=== PATIENT | female | born 1985 ===

== ENCOUNTER 2024-03-03 10:54 | Outpatient (OUT) | payer OTHER, SELFPAY ==
--- NOTE | 2024-03-03 11:01 | ECG_ITS ---
[facility] Test Date: 2024-03-03 Pat Name: BHARATH HUTCHINSON Department: Room: - Gender: Female Gate Operator: : 1985 Requested By: SANJYA GARCIA Order Number: [id number] Reading MD: AMARJIT CURRY Measurements Intervals [place] Rate: 61 P: 44 MO: 137 QRS: 71 QRSD: 86 T: 40 QT: 398 QTc: 404 Interpretive Statements SINUS RHYTHM No previous ECG available for comparison Electronically Signed On 03-03-2024 23:36:01 EDT by AMARJIT CURRY
== END 2024-03-03 10:55 | disposition home or self-care (01) ==
PROVIDERS: PCP Nurse Practitioner Family; Visit Provider Obstetrics & Gynecology
DX: Z01.810 Encounter for preprocedural cardiovascular examination (principal); D25.9 Leiomyoma of uterus, unspecified; N94.6 Dysmenorrhea, unspecified; R10.2 Pelvic and perineal pain
CPT/HCPCS: 93005

== ENCOUNTER 2024-03-12 11:07 | Day surgery (SDC) | payer OTHER, SELFPAY ==
[2024-03-03 11:40] VITALS: BP 142/89; PULSE 62; TEMP 36.5; O2SAT 96; BMI 26.9
[2024-03-12] VITALS (8 sets, daily range): BP systolic 137–165; BP diastolic 89–105; PULSE 83–95; TEMP 35.9–36.2; O2SAT 98–100; BMI 26.9
[2024-03-12 11:17] LABS: Basophils Percent Auto 0.1 % (0.2-2.0); Hematocrit 40.7 % (36.0-48.0); Hemoglobin 13.5 g/dL (12.0-16.0); Immature Granulocytes Abs Auto 0.09 10^3/uL (0.00-0.03); Immature Granulocytes Pct Auto 0.7 % (0.0-0.5); Lymphocytes Absolute Auto 1.6 10^3/uL (1.2-3.8); Lymphocytes Percent Auto 11.7 % (20.5-60.0); Mean Corpuscular HGB Conc 33.2 g/dL (29.9-35.2); Mean Corpuscular Hemoglobin 29.6 pg (26.7-34.0); Mean Corpuscular Volume 89.3 fL (81.0-99.0); Mean Platelet Volume 10.2 fL (9.5-13.5); Monocytes Absolute Auto 0.2 10^3/uL (0.3-0.8); Monocytes Percent Auto 1.6 % (1.7-12.0); Neutrophils Absolute Auto 11.6 10^3/uL (1.4-6.5); Neutrophils Percent Auto 85.9 % (43.0-75.0); Platelet Count 341 10^3/uL (150-450); Red Blood Count 4.56 10^6/uL (4.20-5.40); Red Cell Distribution Width 12.6 % (11.0-15.0); White Blood Count 13.5 10^3/uL (4.0-11.0)
[2024-03-12 11:36] LABS: HCG Quantitative <1 mIU/mL
[2024-03-12] MEDS: LACTATED RINGER'S SOLUTION 1,000 ML 50 ML IV (11:57)
--- NOTE | 2024-03-12 13:25 | PM.ONB ---
Brief Operative Note Date of procedure: 03/12/24 Pre-op diagnosis general: menorrhagia, skin tag Post-op diagnosis: same as pre-op Procedure: NAME OF PROCEDURE: [ D&c hysteroscopy, removal of rt lower quandrant skin lesion] PROCEDURE: The patient was taken back to the Operating Room where she was prepped and draped in normal sterile fashion after being placed under general anesthesia without difficulty. She was also placed in the dorsal lithotomy position. A weighted speculum was placed in the patient?s vagina. The anterior lip of the cervix was identified and grasped with a single tooth tenaculum. The patient?s uterus was then sounded roughly to [? 8] cm. The patient was then gently dilated using Hegar dilators. The hysteroscope was passed through the patient?s cervix into the uterus. Both ostia were identified. fluffy appearing endometrium. No gross evidence of malignancy, no gross evidence of polyps or fibroids. The hysteroscope was then removed from the uterus.gentle currettage until a gritty texture was noted. The endometrial curettings were sent out to pathology. The single tooth tenaculum was then removed from the patient's anterior lip of the cervix where excellent hemostasis was noted. All instruments were removed from the patient?s vagina. a 3cm skin lesion was noted on rlq, it was tented up and removed using metzenbaum scissors. sent off to pathology, excellent hemostasis, closed using 4-0 nylon The patient tolerated the procedure well. Sponge, lap and needle counts were correct times two. The patient was taken to the Recovery Room in stable condition.Room in stable condition. Anesthesia: GETA Surgeon: Issa Powers Estimated blood loss (mL): 5 Pathology: other (endometrial currettings, skin lesion) Condition: stable Disposition: PACU Urinary Catheter Management Urinary Catheter Management Urethral: Cath placed during this visit: no
--- NOTE | 2024-03-12 14:49 | PC.NURSE ---
PATIENT BLOOD PRESSURE ELEVATED THROUGH OUT THE CASE ON AND OFF. PAATIENT STATES SHE DOES NOT TAKE MEDS SHE SHOULD BUT WILL START
== END 2024-03-12 14:48 | disposition home or self-care (01) ==
PROVIDERS: PCP Nurse Practitioner Family; Visit Provider Obstetrics & Gynecology
PROC: (CPT 400; principal; 2024-03-12 12:30)
DX: D25.9 Leiomyoma of uterus, unspecified (principal); N94.6 Dysmenorrhea, unspecified; R10.2 Pelvic and perineal pain; D22.5 Melanocytic nevi of trunk; R63.5 Abnormal weight gain; I10 Essential (primary) hypertension; R56.9 Unspecified convulsions; Z68.26 Body mass index [BMI] 26.0-26.9, adult
CPT/HCPCS: 11403; 58558; 36415; 84702; 85025; 88305; J1100; J2704; J3010